=== PATIENT | female | born 1965 | race African-American/Black ===

== ENCOUNTER 2016-10-29 15:49 | Outpatient (CLI) | payer OTHER ==
[2014-09-28 07:28] VITALS: BP 105/68
[2016-10-29 16:05] LABS: BASOPHILS % 0.5 (0.0-1.5); EOSINOPHILS % 3.4 % (0.0-6.8); LYMPHOCYTES # 3.3 # k/uL (0.6-4.0); MEAN CORPUSCULAR HEMOGLOBIN 31.7 pg (28.0-34.0); MONOCYTES # 0.4 # k/uL (0.0-0.9); MONOCYTES % 4.1 % (0.0-11.0); NEUTROPHILS # 4.2 # k/uL (1.4-7.7)
[2016-10-29 16:40] LABS: eGFR (African) > 60; eGFR (Non-African) > 60
[2016-10-31 11:41] LABS: ADENOVIRUS F 40/41 Not Detected (Not Detected); ASTROVIRUS Not Detected (Not Detected); C. DIFFICILE (TOXIN A/B) Not Detected (Not Detected); CRYPTOSPORIDIUM Not Detected (Not Detected); CYCLOSPORA CAYETANENSIS Not Detected (Not Detected); ENTAMOEBA HISTOLYTICA Not Detected (Not Detected); GIARDIA LAMBLIA Not Detected (Not Detected); ROTAVIRUS A Not Detected (Not Detected); SAPOVIRUS Not Detected (Not Detected); VIBRIO CHOLERAE Not Detected (Not Detected)
== END 2016-10-29 15:50 ==
LOC: LAB 15:49
PROVIDERS: ATTEND Physician Assistant
DX: A09 Infectious gastroenteritis and colitis, unspecified (principal)
CPT/HCPCS: 36415; 80053; 85025; 87507